=== PATIENT | male | born 1985 | race Caucasian/White ===

== ENCOUNTER 2017-02-05 10:12 | Emergency (ER) | payer OTHER ==
[2017-02-05] MEDS ORDERED: levETIRAcetam 500 MG/5 ML INJECTION VIAL IVPB ONE ×2 (10:50→11:01)
[2017-02-05] MEDS ORDERED: SODIUM CHLORIDE 1,000 ML IV STA (10:50)
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
[2017-02-05 11:15] VITALS: TEMP 98.4; BMI 34.2
[2017-02-05 11:37] LABS: BASOPHIL 0.2 % (0-2.0); MCH 26.8 pg (25.7-33.7); MCHC 32.7 g/dl (32.0-35.9); MEAN PLT VOLUME 7.2 fl (7.5-11.1); NEUTROPHILS 61.4 % (42.8-82.8); PLATELET COUNT 236 K/MM3 (134-434); RDW 15.3 % (11.9-15.9); WHITE BLOOD COUNT 6.6 K/mm3 (4.0-10.0)
[2017-02-05 12:16] LABS: ALBUMIN 3.9 g/dl (3.4-5.0); ANION GAP 8 (8-16); BILIRUBIN,TOTAL 0.3 mg/dL (0.2-1.0); CALCIUM 8.9 mg/dL (8.5-10.1); CO2 27 mmol/L (21-32); COCKROFT - GAULT 152.78; CREATININE 1.2 mg/dL (0.7-1.3); GLUCOSE,RANDOM 100 mg/dL (74-106); SGOT/AST 24 U/L (15-37); SGPT/ALT 27 U/L (12-78)
[2017-02-05 12:18] LABS: ALK PHOS 60 U/L (45-117)
[2017-02-05] MEDS ORDERED: IBUPROFEN 600 MG TABLET (FP) PO ONE ×2 (12:26)
[2017-02-05 12:44] VITALS: BP 140/78; PULSE 78
== END 2017-02-05 12:43 | disposition home or self-care (01) ==
LOC: JER 10:12
PROC: 3E033GC Introduction of Other Therapeutic Substance into Peripheral Vein, Percutaneous Approach (ICD-10-PCS; principal; 2017-02-05)
DX: G40.802 Other epilepsy, not intractable, without status epilepticus (principal); R51 Headache; I10 Essential (primary) hypertension; R78.5 Finding of other psychotropic drug in blood; E78.00 Pure hypercholesterolemia, unspecified; C18.9 Malignant neoplasm of colon, unspecified
CPT/HCPCS: 36415; 80053; 85025; 96374; 99283-25

== ENCOUNTER 2017-06-25 10:43 | Emergency (ER) | payer OTHER ==
[2017-06-25 10:57] VITALS: BP 134/85; PULSE 95; TEMP 97.8; BMI 32.1
--- NOTE | 2017-06-25 11:14 | PDOC ---
History of Present Illness - General History Source: Patient, Old Records Exam Limitations: No Limitations <Sergio Tyson - Last Filed: 06/25/17 11:17> - General History Source: Patient Exam Limitations: No Limitations - History of Present Illness Initial Comments: 06/25/17 11:23 The patient is a 32 year old male, with a significant past medical history of Seizure disorder, Colon CA who presents to the emergency department s/p witnessed seizure today. EMS reports first seizure for 30 seconds and second seizure lasting 1 minute. Patient denies any tongue biting, foaming at the mouth , injuries or falls. Patient denies any head trauma, nausea or vomiting. Patient does report headache for the past 2 days for which he has made an appointment with his neurologist today. Patient admits to missing his doses of Keppra 500 mg this past weekend. He denies chest pain or dizziness. He denies fever, chills, abdominal pain, diarrhea or constipation. He denies dysuria, frequency, urgency or hematuria. Allergies: NKA Past surgical history: Colon resection Social history: None PCP: Dr. Jose Esqueda <Khushbu Gayle - Last Filed: 06/25/17 11:26> - General Chief Complaint: Seizure Stated Complaint: Seizure Time Seen by Provider: 06/25/17 10:52 Past History - Past Medical History Cancer: Yes (colon starts chemo 02/07/2017) Seizures: Yes - Surgical History Abdominal Surgery: Yes (colon resection) - Psycho/Social/Smoking Cessation Hx Anxiety: No Suicidal Ideation: No Smoking History: Never smoked Have you smoked in the past 12 months: No Information on smoking cessation initiated: No Hx Alcohol Use: No Drug/Substance Use Hx: No Substance Use Type: None <Sergio Tyson - Last Filed: 06/25/17 11:17> <Khushbu Gayle - Last Filed: 06/25/17 11:26> - Past Medical History Allergies/Adverse Reactions: Allergies Allergy/AdvReac Type Severity Reaction Status Date / Time No Known Allergies Allergy Verified 06/25/17 10:51 Home Medications: Ambulatory Orders Levetiracetam [Keppra] 500 mg PO BID 05/10/16 Oxycodone HCl/Acetaminophen [Percocet 5-325 mg Tablet] 1 tab PO Q6H PRN Review of Systems - Review of Systems Able to Perform ROS?: Yes Comments:: 06/25/17 11:24 GENERAL/CONSTITUTIONAL: No fever or chills. No weakness. HEAD, EYES, EARS, NOSE AND THROAT: No change in vision. No ear pain or discharge. No sore throat. CARDIOVASCULAR: No chest pain or shortness of breath. RESPIRATORY: No cough, wheezing, or hemoptysis. GASTROINTESTINAL: No nausea, vomiting, diarrhea or constipation. GENITOURINARY: No dysuria, frequency, or change in urination. MUSCULOSKELETAL: No joint or muscle swelling or pain. No neck or back pain. SKIN: No rash NEUROLOGIC: + headache. No vertigo, loss of consciousness, or change in strength /sensation. ENDOCRINE: No increased thirst. No abnormal weight change. HEMATOLOGIC/LYMPHATIC: No anemia, easy bleeding, or history of blood clots. ALLERGIC/IMMUNOLOGIC: No hives or skin allergy. <Khushbu Gayle - Last Filed: 06/25/17 11:26> *Physical Exam - Vital Signs Last Vital Signs Temp Pulse Resp BP Pulse Ox 97.8 F 95 H 18 134/85 100 06/25/17 10:52 06/25/17 10:52 06/25/17 10:52 06/25/17 10:52 06/25/17 10:52 <Sergio Tyson - Last Filed: 06/25/17 11:17> - Vital Signs Last Vital Signs Temp Pulse Resp BP Pulse Ox 97.8 F 95 H 18 134/85 100 06/25/17 10:52 06/25/17 10:52 06/25/17 10:52 06/25/17 10:52 06/25/17 10:52 - Physical Exam Comments: 06/25/17 11:24 GENERAL: Awake, alert, and fully oriented, in no acute distress HEAD: No signs of trauma EYES: PERRLA, EOMI, sclera anicteric, conjunctiva clear ENT: Auricles normal inspection, hearing grossly normal, nares patent, oropharynx clear without exudates. Moist mucosa NECK: Normal ROM, supple, no lymphadenopathy, JVD, or masses LUNGS: Breath sounds equal, clear to auscultation bilaterally. No wheezes, and no crackles HEART: Regular rate and rhythm, normal S1 and S2, no murmurs, rubs or gallops ABDOMEN: Soft, nontender, normoactive bowel sounds. No guarding, no rebound. No masses EXTREMITIES: Normal range of motion, no edema. No clubbing or cyanosis. No cords, erythema, or tenderness NEUROLOGICAL: Cranial nerves II through XII intact. 5/5 strength upper and lower extremities, Sensation intact throughout all extremities, No pronator drift, Gait Normal, Speech Normal,Finger to nose intact. SKIN: Warm, Dry, normal turgor, no rashes or lesions noted. <Khushbu Gayle - Last Filed: 06/25/17 11:26> Medical Decision Making - Medical Decision Making 06/25/17 11:09 A portion of this note was documented by scribe services under my direction. I have reviewed the details of the note, within reason, and agree with the documentation with the following case summary and management plan written by me. Patient treated in the ED. Nursing notes are reviewed and incorporated into the medical decision-making. Vital signs reviewed. Peripheral IV access obtained by the nurse, laboratory studies are drawn and sent, reviewed and interpreted by myself. Vital Signs Temp Pulse Resp BP Pulse Ox 97.8 F 95 H 18 134/85 100 06/25/17 10:52 06/25/17 10:52 06/25/17 10:52 06/25/17 10:52 06/25/17 10:52 32-year-old male with history of colon cancer stage II localized the abdomen, history of epilepsy on 500 mg of Keppra twice a day presents with one episode of grand mal seizure at work. Patient reports that he missed several doses of his medication last few days given that he was on vacation. Last seizure was in January. Patient states he has had a posterior tension-like headache for 2 days but no or us. He had an appointment with his neurologist at 1 PM today and [place] by Dr. Rene. He has back to baseline and without any complaints. I suspect this is likely secondary to his epilepsy disorder and missed doses. However, given the history of colon cancer, I initially would have recommended a CAT scan the head and blood work. However, the patient states he has an appointment with his neurologist in next hour and his will be driving him there. The patient really prefers not to be worked up twice since he is getting blood work and further workup done at his doctor's office. Given that the most likely circumstance is missed doses and that the patient has follow-up in the next hour with his specialist, I will allow the patient's to drive the patient over to the neurologist office. FS: [id number] I instructed the patient not to drive until he is cleared by his neurologist. I discussed the physical exam findings, ancillary test results and final diagnoses with the patient. I answered all of the patient's questions. The patient was satisfied with the care received and felt comfortable with the discharge plan and treatment plan. The patient will call their primary care physician within 24 hours to arrange follow-up and will return to the Emergency Department with any new, persistant or worsening symptoms. <Sergio Tyson - Last Filed: 06/25/17 11:17> *DC/Admit/Observation/Transfer - Discharge Dispostion Admit: No <Sergio Tyson - Last Filed: 06/25/17 11:17> - Attestations Scribe Attestion: 06/25/17 11:24 Documentation prepared by Khushbu Gayle, acting as regional medical director for Sergio Tyson MD <Khushbu Gayle - Last Filed: 06/25/17 11:26> Diagnosis at time of Disposition: Seizure - Discharge Dispostion Disposition: HOME Condition at time of disposition: Stable - Referrals Referrals: Jose Esquead [Primary Care Provider] - - Patient Instructions Printed Discharge Instructions: DI for Seizure Disorder -- Adult Additional Instructions: Please take your keppra medication. Go directly to the neurologist's office.
== END 2017-06-25 11:30 | disposition home or self-care (01) ==
LOC: JER 10:43
DX: G40.909 Epilepsy, unspecified, not intractable, without status epilepticus (principal); C18.9 Malignant neoplasm of colon, unspecified; Z98.890 Other specified postprocedural states; Z91.14 Patient's other noncompliance with medication regimen
CPT/HCPCS: 99282-25